=== PATIENT | male | born 1940 | race Caucasian/White ===

== ENCOUNTER → 2017-10-28 09:58 | Outpatient (CLI) | payer MEDICARE, SELFPAY ==
--- NOTE | 2017-11-05 12:27 | HOLTER_ITS ---
HOLTER MONITOR DATE OF DICTATION November 05, 2017 STUDY INDICATION Syncope. REQUESTING PROVIDER Traci Soni N.P. FINDINGS The patient was monitored for one day and 23 hours. The baseline rhythm was sinus rhythm with PACs. The average heart rate was 67 beats per minute. Range 51 to 95 beats per minute. There were occasional PVCs, 5%, approximately 4,700 PVCs per day. There was no ventricular tachycardia. There were rare PACs, 0.6%, approximately 550 PACs per day. There was no atrial tachycardia. There were no pauses greater than 3 seconds. There was no higher degree heart block. SYMPTOMS There were no symptoms reported. FINAL INTERPRETATION Frequent asymptomatic PVCs.
== END ==
PROVIDERS: PCP Nurse Practitioner Family; Visit Provider Nurse Practitioner Family
DX: R55 Syncope and collapse (principal); I49.3 Ventricular premature depolarization; I10 Essential (primary) hypertension
CPT/HCPCS: 93225

== ENCOUNTER → 2017-10-30 14:29 | Outpatient (CLI) | payer MEDICARE, SELFPAY | PROVIDERS: PCP Nurse Practitioner Family; Visit Provider Nurse Practitioner Family | DX: R55 Syncope and collapse (principal); I49.3 Ventricular premature depolarization; I10 Essential (primary) hypertension | CPT/HCPCS: 93226 ==

== ENCOUNTER → 2017-11-05 10:07 | Outpatient (CLI) | payer MEDICARE, SELFPAY | PROVIDERS: PCP Nurse Practitioner Family; Visit Provider Student in an Organized Health Care Education/Training Program | DX: R55 Syncope and collapse (principal); I10 Essential (primary) hypertension; I49.3 Ventricular premature depolarization ==

== ENCOUNTER 2018-08-21 02:58 | Outpatient (CLI) | payer MEDICARE, SELFPAY ==
[2018-08-21 08:25] LABS: Hemoglobin A1C 7.7 % (4.5-6.2)
[2018-08-21 08:56] LABS: COMMENT (LAB VIEW ONLY) 87.79 mg/dL; Microalb ug/mg Crea 18.6 ug/mg Cr
[2018-08-21 09:18] LABS: ALT 23 U/L (12-78); AST 14 U/L (15-37); Albumin 3.7 g/dL (3.4-5.0); Alkaline Phosphatase 68 U/L (46-116); BUN 8 mg/dL (7-18); Bilirubin, Total 0.6 mg/dL (0.2-1.0); CREATININE 0.82 mg/dL (0.70-1.30); Calcium 9.2 mg/dL (8.5-10.1); Calculated LDL 65; Chloride 94 mmol/L (98-107); Cholesterol 131 mg/dL (50-200); Glucose 174 mg/dL (70-100); HDL Cholesterol 45 mg/dL (40-60); Potassium 4.2 mmol/L (3.5-5.1); Sodium 132 mmol/L (136-145); Total Protein 6.9 g/dL (6.4-8.2); Triglyceride 106 mg/dL (30-150)
== END 2018-08-21 03:18 ==
PROVIDERS: PCP Nurse Practitioner Family; Visit Provider Nurse Practitioner Family
DX: E78.5 Hyperlipidemia, unspecified (principal); E11.65 Type 2 diabetes mellitus with hyperglycemia; I10 Essential (primary) hypertension
CPT/HCPCS: 36415; 80053; 80061; 83721; 82043; 82570; 83036

== ENCOUNTER 2019-11-25 16:26 | Outpatient (REF) | payer MEDICARE, SELFPAY ==
[2019-11-25 18:38] LABS: COMMENT (LAB VIEW ONLY) 110.06 mg/dL; Microalb ug/mg Crea 9.5 ug/mg Cr
== END 2019-11-25 16:46 ==
LOC: LBN 16:26
PROVIDERS: PCP Nurse Practitioner Family; Visit Provider Nurse Practitioner Family
DX: E11.65 Type 2 diabetes mellitus with hyperglycemia (principal)
CPT/HCPCS: 82043; 82570

== ENCOUNTER 2020-04-12 03:10 | Outpatient (CLI) | payer MEDICARE, SELFPAY ==
[2020-04-12 11:11] LABS: Anion Gap 10.3 mmol/L (3-11); BUN 11 mg/dL (7-18); CO2 27.7 mmol/L (21.0-32.0); CREATININE 1.01 mg/dL (0.70-1.30); Calcium 9.3 mg/dL (8.5-10.1); Chloride 90 mmol/L (98-107); Glucose 370 mg/dL (74-106); Potassium 3.9 mmol/L (3.5-5.1); Sodium 128 mmol/L (136-145)
[2020-04-12 11:43] LABS: Calculated LDL 66 mg/dL (<100); Cholesterol 137 mg/dL (<200); HDL Cholesterol 49 mg/dL (40-60); Triglyceride 112 mg/dL (<150)
== END 2020-04-12 03:30 ==
PROVIDERS: PCP Nurse Practitioner Family; Visit Provider Nurse Practitioner Family
DX: E78.5 Hyperlipidemia, unspecified (principal); E11.65 Type 2 diabetes mellitus with hyperglycemia
CPT/HCPCS: 36415; 80048; 80061

== ENCOUNTER 2020-06-19 04:24 | Outpatient (CLI) | payer MEDICARE, SELFPAY ==
[2020-06-19 11:25] LABS: Sodium 132 mmol/L (136-145)
== END 2020-06-19 04:25 | disposition home or self-care (01) ==
LOC: LBO 04:24
PROVIDERS: PCP Nurse Practitioner Family; Visit Provider Nurse Practitioner Family
DX: E87.1 Hypo-osmolality and hyponatremia (principal)
CPT/HCPCS: 36415; 84295

== ENCOUNTER 2021-04-13 13:51 | Outpatient (REF) | payer MEDICARE, SELFPAY ==
[2021-04-13 17:38] LABS: COMMENT (LAB VIEW ONLY) 59.14 mg/dL; Microalb ug/mg Crea 24.2 ug/mg Cr
== END 2021-04-13 13:52 | disposition home or self-care (01) ==
LOC: LBN 13:51
PROVIDERS: PCP Nurse Practitioner Family; Visit Provider Nurse Practitioner Family
DX: E11.65 Type 2 diabetes mellitus with hyperglycemia (principal)
CPT/HCPCS: 82043; 82570

== ENCOUNTER 2021-07-20 02:43 | Outpatient (CLI) | payer MEDICARE, SELFPAY ==
[2021-07-20 10:18] LABS: ALT 19 U/L (16-63); AST 16 U/L (15-37); Alkaline Phosphatase 64 U/L (46-116); Anion Gap 8.7 mmol/L (3-11); BUN 13 mg/dL (7-18); Bilirubin, Total 0.6 mg/dL (0.2-1.0); CO2 29.3 mmol/L (21.0-32.0); CREATININE 0.8 mg/dL (0.70-1.30); Calcium 9.2 mg/dL (8.5-10.1); Calculated LDL 60 mg/dL (<100); Chloride 95 mmol/L (98-107); Cholesterol 127 mg/dL (<200); Glucose 159 mg/dL (74-106); HDL Cholesterol 50 mg/dL (40-60); Potassium 4.1 mmol/L (3.5-5.1); Sodium 133 mmol/L (136-145); Total Protein 7.2 g/dL (6.4-8.2); Triglyceride 89 mg/dL (<150)
== END 2021-07-20 02:44 | disposition home or self-care (01) ==
LOC: LBO 02:44
PROVIDERS: PCP Nurse Practitioner Family; Visit Provider Nurse Practitioner Family
DX: E78.5 Hyperlipidemia, unspecified (principal); E11.65 Type 2 diabetes mellitus with hyperglycemia; E87.1 Hypo-osmolality and hyponatremia; I10 Essential (primary) hypertension
CPT/HCPCS: 36415; 80053; 80061

== ENCOUNTER 2021-12-12 08:28 | Emergency (ER) | payer MEDICARE, SELFPAY ==
[2021-12-12] VITALS (13 sets, daily range): BP systolic 152–168; BP diastolic 69–83; PULSE 87–94; RESP 18; TEMP 37.1; O2SAT 95–99
--- NOTE | 2021-12-12 08:53 | ED.GENADUL_ITS ---
Discharge Plan Disposition Patient Disposition: HOME Condition: Improving Discharge Details Clinical Impression: Hyponatremia, Fall, Urinary tract infection Primary Care Provider: Traci Soni ED Provider: Dawson Hoang Home Meds and New Rx's Prescriptions: New cefpodoxime 100 mg tablet 100 mg PO BID 7 Days Qty: 14 0RF Rx Instructions: must administer with a meal/food No Action metformin 1,000 mg tablet 1,000 mg PO BID Qty: 180 3RF Rx Instructions: to lower blood sugar (DME) lancets [FreeStyle Lancets] 1 EACH misc 1 ea Miscellaneous DAILY 3 Days Qty: 100 3RF Rx Instructions: to check BS daily for DM E11.42 to keep A1c less than 7. atenolol 50 mg tablet 50 mg PO DAILY Qty: 90 3RF hydrochlorothiazide 25 mg tablet 25 mg PO DAILY AM Qty: 90 3RF (DME) FreeStyle Lite Strips Strip 1 ea Miscellaneous DAILY Qty: 100 3RF Rx Instructions: Dx: E11.9 to maintain HbA1c less than 7%. No insulin. atorvastatin 20 mg tablet 20 mg PO DAILY Qty: 90 3RF glipizide 10 mg tablet 10 mg PO BID Qty: 180 3RF Rx Instructions: Take with a meal losartan 100 mg tablet 100 mg PO DAILY Qty: 90 3RF Discharge Instructions Instructions: Urinary Tract Infection in Men (ED), Hyponatremia (ED) Additional Instructions: Please follow-up with care management team to discuss physical therapy occupational therapy and/or home health care resources. Please return to the emergency department for any worsening symptoms. Medical Decision Making 81-year-old male history of diabetes presents brought in after fall found down the next to bed, patient Dors that he had been on the ground since 1 AM this morning, found by a neighbor, ambulatory at scene endorsing right hip discomfort. Denies headache chest pain shortness of breath nausea or vomiting. Patient is afebrile nontoxic alert oriented moving all extremities. Small area of ecchymosis to right hip. Warm well perfused extremity neurovascular exam intact. Spoke with daughter Ava Crowley phone number [phone] who endorses that her father has displayed increased forgetfulness, mood swings and falls over the past several months, likely early signs of dementia. Patient is calm cooperative no acute distress. Consider hip contusion versus less likely fracture versus less likely dislocation. Must also consider metabolic process such as blood sugar dyscrasia or metabolic issue such as hypo or hypernatremia versus less likely UTI must also consider intracranial process given age and fall however patient is not displaying any signs of altered mental status nausea or vomiting that would suggest intracranial hemorrhage. Will obtain basic labs CT head x-ray right hip and pelvis, CPK. We will have patient evaluated by care management team to assess home needs may benefit from OT PT and her home health aide. Patient's daughter Ava is driving from [place] currently to be with her father. 11: 34 care management team will be reaching out to provide patient family with resources for home care. Spoke with patient's stepdaughter Tiki who was able to pick him up. Spoke with patient and Tiki as well as patient's daughter Nanette regarding the importance of salt intake over the next couple of days in order to correct his hyponatremia. Family endorses that patient has had chronic hyponatremia for last year. Patient has no signs of fracture or intracranial process. Patient is alert and oriented nontoxic hemodynamically stable. Patient and family given strict return precautions for any worsening symptoms. HPI General Date/Time Provider Initiated Documentation: 12/12/21 08:46 . HPI Narrative: 81-year-old male history of diabetes, insulin, presents after fall, unclear the nature of the fall however patient was on the ground next to his bed from 1 AM until early this morning when a neighbor found him, patient endorses right hip discomfort however is able to ambulate and stand without assistance; denies headache nausea vomiting chest pain or other symptoms. I was able to speak with patient's daughter Ava Crowley who is also his health care proxy phone number [phone] who endorses that her father has shown signs of forgetfulness change in mood and multiple falls over the last 6 months. Ava lives in [place]. Patient lives alone. Related Data Home Medications Medication Instructions Recorded Confirmed lancets 28 gauge (FreeStyle #100 ea 04/28/17 12/12/21 Lancets) atenolol 50 mg tablet 50 mg PO DAILY high blood pressure 04/11/21 12/12/21 #90 tabs hydrochlorothiazide 25 mg tablet 25 mg PO DAILY AM #90 tab-caps 05/14/21 12/12/21 blood sugar diagnostic (FreeStyle #100 strips 05/23/21 12/12/21 Lite Strips) metformin 1,000 mg tablet 1,000 mg PO BID #180 tabs 07/12/21 12/12/21 atorvastatin 20 mg tablet 20 mg PO DAILY #90 tab-caps 09/18/21 12/12/21 glipizide 10 mg tablet 10 mg PO BID #180 tab-caps 09/21/21 12/12/21 losartan 100 mg tablet 100 mg PO DAILY #90 tab-caps 09/21/21 12/12/21 cefpodoxime 100 mg tablet 100 mg PO BID 7 days #14 tabs 12/12/21 Previous Rx's Medication Instructions Recorded lancets 28 gauge (FreeStyle #100 ea 04/28/17 Lancets) atenolol 50 mg tablet 50 mg PO DAILY high blood pressure 04/11/21 #90 tabs hydrochlorothiazide 25 mg tablet 25 mg PO DAILY AM #90 tab-caps 05/14/21 blood sugar diagnostic (FreeStyle #100 strips 05/23/21 Lite Strips) metformin 1,000 mg tablet 1,000 mg PO BID #180 tabs 07/12/21 atorvastatin 20 mg tablet 20 mg PO DAILY #90 tab-caps 09/18/21 glipizide 10 mg tablet 10 mg PO BID #180 tab-caps 09/21/21 losartan 100 mg tablet 100 mg PO DAILY #90 tab-caps 09/21/21 cefpodoxime 100 mg tablet 100 mg PO BID 7 days #14 tabs 12/12/21 Allergies Allergy/AdvReac Type Severity Reaction Status Date / Time simvastatin Allergy Unknown itching Verified 12/12/21 08:37 lovastatin AdvReac Unknown shoulder Verified 12/12/21 08:37 aches General Stated Complaint: Orthopedic DAVID: 3 Review of Systems Narrative: Review of Systems Constitutional: negative Eyes: negative ENT: negative Cardiovascular: negative Respiratory: negative Gastrointestinal: negative : negative Musculoskeletal: Hip pain Skin: negative Neurologic: negative Psych: negative PFSH All Active Problems (Updated 12/12/21 @ 11:42 by Dawson Hoang MD) Hyponatremia (Acute) Fall (Acute) Urinary tract infection (Acute) Unspecified essential hypertension (Chronic 06/19/12) Type 2 diabetes mellitus with hyperglycemia, without long-term current use of insulin (Chronic 10/27/17) Rosacea (Chronic 10/08/13) Other and unspecified hyperlipidemia (Chronic 06/19/12) PCEq risk 51%; LDL baseline 169; 08/2018 labs: good response to moderate intensity statin therapy, continue Hyponatremia (Chronic 06/19/12) Diabetic peripheral neuropathy (Chronic 10/08/13) Medical History Trigger finger, left ring finger (08/19/14) Surgical History L knee Family History Mother Diabetes Hypertension Brother Cancer Lung Sister Cancer Lung Social History Smoking/Tobacco Use Status: Former Tobacco Use Smoking risk assessment performed?: Yes Alcohol Intake: never Drug use: Never Substance use type: does not use Adopted: No Caregiver/Support person: No Foster care: No Housing: house Number of Children: 4 number of grandchildren: 16 Communication Needs: Hard of Hearing Education Level: college current occupation: retired licensed loan officer at [employer] Pets and animals: No Sexually active: No Do you think of yourself as: straight/heterosexual Current gender identity: male What is your relationship status?: How often do you talk on the phone with friends or family?: three or more times per week How often do you get together with friends or relatives?: twice per week Do you belong to any clubs or organized social groups?: no Panel score (0-1 are the most socially isolated patients): 1 What type of physical activity do you participate in: walking and weight lifti ng Duration: 15-30 minutes/day Frequency: 3-4 times per week Pili/Oriental Orthodox: Gnosticism Seatbelt use: always Helmet use: No Drive intox or ride w/intox operator and truck driver: No Water heater temp set <120 deg: Yes Working smoke detector in home: Yes Fire extinguisher in home: No Carbon monox detector in home: No Firearms in home: No Do you feel safe at home: Yes Do you feel safe in your relationship?: Yes Exam Narrative Exam Narrative: Physical Examination General: alert, awake, cooperative, resting comfortably, no acute distress HEENT: normocephalic, atraumatic; PERRL, EOM intact, conjunctiva normal; no nasal discharge; moist mucous membranes, oral and pharyngeal mucosa normal, tolerating secretions Neck: supple, trachea midline; full ROM Chest: normal to inspection Respiratory: normal respiratory effort, speaking in full sentences, clear to auscultation, no wheezing, rales or rhonchi Cardiac: regular rate, regular rhythm, S1S2 intact, no murmurs rubs or gallops GI: abdomen soft, non-tender, non-distended; no palpable mass or hepat osplenomegaly Skin: no lesions, rashes or trauma appreciated Neuro: AAOx3, normal speech, moving all extremities; 5-5 strength upper and lower extremities Extremities: Small area of superficial ecchymosis right hip, no palpable deformity, range of motion hip knee ankle and foot intact, warm well perfused extremities Psych: Appropriate mood and affect Course Vital Signs Vital signs: Vital Signs Temperature 37.1 C 12/12/21 08:32 Pulse 94 H 12/12/21 08:32 Respiratory Rate 18 12/12/21 08:32 Blood Pressure 168/83 H 12/12/21 08:32 Pulse Oximetry 95 12/12/21 08:32 Temperature 37.1 C 12/12/21 08:32 Temperature Source Temporal Artery Scan 12/12/21 08:32 Pulse 94 H 12/12/21 08:32 Respiratory Rate 18 12/12/21 08:32 Respiratory Effort Non-Labored 12/12/21 08:35 Blood Pressure 168/83 H 12/12/21 08:32 Blood Pressure Position Supine 12/12/21 08:32 Pulse Oximetry 95 12/12/21 08:32 Oxygen Delivery Method Room Air 12/12/21 08:32 Oxygen Flow Rate 0 12/12/21 08:32 Pain Level 0 12/12/21 08:32
--- NOTE | 2021-12-12 09:16 | NUR.NOTE ---
Nursing Note: Pt to DI via stretcher for ordered examine, denies c/o pain.
--- NOTE | 2021-12-12 09:22 | DI.CT_ITS ---
Exam(s) CT HEAD WO EXAM: CT HEAD WO CLINICAL HISTORY: fall last night. TECHNIQUE: Imaging Protocol: Axial computed tomography images with coronal and sagittal reformatted images were created and reviewed COMPARISON: No exams were available for comparison FINDINGS: There is moderate generalized cerebral atrophy. There are patchy areas of decreased attenuation in periventricular white matter consistent with microvascular ischemic changes. There is possible old l eft occipital infarct. No evidence of acute intracranial hemorrhage, mass effect, or midline shift. The orbital structures are unremarkable. The temporal bone structures appear intact. Calvarium: Normal. Visualized Paranasal sinuses/Mastoids: Clear. IMPRESSION: No evidence of acute process. RADIATION DOSE DELIVERED: 788.57mGy.cm Total DLP 788.57mGy.cm Total DLP !Error CTDIvol DATA REPOSITORY: All CT scans at this facility are submitted to the National Radiology Data Registry (NRDR) Dose Index Registry (DIR) with the [employer] (ACR). RADIATION OPTIMIZATION: All CT scans at this facility use at least one of these dose optimization te chniques: automated exposure control; mA and/or kV adjustment per patient size (includes targeted exa ms where dose is matched to clinical indication); or iterative reconstruction.
--- NOTE | 2021-12-12 09:30 | DI.RAD_ITS ---
Exam(s) XR HIP RT COMPLETE AP PELVIS EXAM: XR HIP RT COMPLETE AP PELVIS CLINICAL HISTORY: fall last night, right hip pain TECHNIQUE: COMPARISON: No exams were available for comparison FINDINGS: Two views were obtained. There are mild degenerative changes of both hips and both SI joints. There is no evidence of acute fracture or dislocation. IMPRESSION: RADIATION DOSE DELIVERED: Total DLP
[2021-12-12 09:44] LABS: Abs Immature Grans 0.05 10^3/uL (0.0-0.06); Absolute Basophil Count 0.03 10^3/uL (0.0-0.2); Absolute Lymphocyte Count 0.57 10^3/uL (1.2-3.4); Absolute Neutrophil Count 13.91 10^3/uL (1.2-6.7); Basophils % 0.2; HCT 33.8 % (40.0-50.0); HGB 12.1 g/dL (13.5-17.5); Immature Grans % 0.3; Lymphocytes % 3.6; MCH 31.6 pg (27.0-33.0); MCHC 35.8 % (32.0-36.0); MCV 88 fL (80-95); MPV 9.6 fL (8.0-11.0); Monocytes % 7.6; Neutrophils % 88.3; Platelet Count 255 10^3/uL (130-400); RBC 3.83 10^6/uL (4.36-5.78); RDW 11.8 % (11.8-14.1); RDW-SD 38.1 fL; WBC 15.75 10^3/uL (4.4-10.8)
--- NOTE | 2021-12-12 09:49 | NUR.NOTE ---
Nursing Note: Pt return from DI, cont. with no current complaints.
[2021-12-12 10:01] LABS: ALT 34 U/L (16-63); AST 45 U/L (15-37); Albumin 3.7 g/dL (3.4-5.0); Alkaline Phosphatase 59 U/L (46-116); Anion Gap 8.5 mmol/L (3-11); BUN 11 mg/dL (7-18); CO2 27.5 mmol/L (21.0-32.0); CREATININE 0.9 mg/dL (0.70-1.30); Chloride 90 mmol/L (98-107); Creatine Kinase 941 U/L (39-308); Estimated GFR 86.34 (mL/min/1.73m2); Glucose 211 mg/dL (74-106); Potassium 3.6 mmol/L (3.5-5.1); Sodium 126 mmol/L (136-145); Total Protein 7.1 g/dL (6.4-8.2)
[2021-12-12 10:11] LABS: Bilirubin Negative (Negative); Blood Trace-lysed (Negative); Clarity Sl Cloudy (Clear); Glucose 500 mg/dL (Negative); Ketones 15 mg/dL (Negative); Leukocyte Esterase Negative (Negative); Nitrite Positive (Negative); Urobilinogen 0.2 EU/dL (Up TO 0.2)
[2021-12-12 10:22] LABS: Bacteria Many HPF (Negative); C & S Indicated? Yes; Casts Negative LPF (Negative); Crystals Negative HPF (Negative); Epithelial Cells Rare HPF (Negative); Mucus Trace (Negative)
[2021-12-12] MEDS: Cefpodoxime 200 MG TAB PO (11:42)
--- NOTE | 2021-12-12 15:55 | NUR.NOTE ---
spoke with [facility], patient left without paperwork stating dx of uti and rx for abx. advised them that patient needs to package pick up his abx as this could be the cause of his sx.
--- NOTE | 2021-12-12 17:13 | CMPROGNOTE_ITS ---
- If Service Date Differs Date of service: 12/12/21 Time of Service: 17:13 Care Management Progress Note CM consulted by ED Provider. Dr. Nuñez reports Oskar's daughter is traveling from [place] to stay with him. Per MD report, CM prepared home health orders for RN, PT, OT, DOCTOR CHIROPRACTIC and COA referral, as well. Home Health orders provided to [facility] CM. Appears orders may have been cancelled due to concern re: home bound status and lack of MD documentation. This senior writer provided packet to Joann to fax to [facility] for follow up with patient needs, and scheduling of PCP F/U. Anticipate [facility] will outreach to Oskar and his daughter, directly and PCP office will review increased supports and interv entions at next appointment.
== END 2021-12-12 12:36 | disposition home or self-care (01) ==
PROVIDERS: Emergency Provider Emergency Medicine; PCP Nurse Practitioner Family
DX: E87.1 Hypo-osmolality and hyponatremia (principal); N39.0 Urinary tract infection, site not specified; B96.1 Klebsiella pneumoniae [K. pneumoniae] as the cause of diseases classified elsewhere; R29.6 Repeated falls; S70.01XA Contusion of right hip, initial encounter; Z87.891 Personal history of nicotine dependence; W19.XXXA Unspecified fall, initial encounter
CPT/HCPCS: 36415; 80053; 82550; 87077; 99284; 70450; 73502; 81003; 81015; 85025; 87086; 87186

== ENCOUNTER 2021-12-17 04:46 | Outpatient (CLI) | payer MEDICARE, SELFPAY ==
[2021-12-17 16:38] LABS: Anion Gap 10.6 mmol/L (3-11); BUN 16 mg/dL (7-18); CO2 26.4 mmol/L (21.0-32.0); Calcium 9.2 mg/dL (8.5-10.1); Chloride 93 mmol/L (98-107); Creatine Kinase 113 U/L (39-308); Estimated GFR 76.08 (mL/min/1.73m2); Glucose 182 mg/dL (74-106); Potassium 3.9 mmol/L (3.5-5.1); Sodium 130 mmol/L (136-145)
== END 2021-12-17 04:47 | disposition home or self-care (01) ==
LOC: LBO 04:46
PROVIDERS: PCP Nurse Practitioner Family; Visit Provider Nurse Practitioner Family
DX: R74.8 Abnormal levels of other serum enzymes (principal); E87.1 Hypo-osmolality and hyponatremia
CPT/HCPCS: 36415; 80048; 82550